=== PATIENT | female | born 1995 | race African-American/Black ===

== ENCOUNTER 2016-09-12 18:25 | Outpatient (CLI) | payer BC ==
[~2016-09-12 18:25] MED LIST: ERYTHROMYC1 APPLICAT LEFT EYE; JUNEL FE 1/21 TABLET PO; MOBIC15 MG PO; TRAMADOL HCL50 MG PO; ~No Medications
[2016-09-12 19:20] VITALS: BP 130/66
[2016-09-12 20:42] VITALS: BP 125/60
== END 2016-09-12 21:25 | disposition home or self-care (01) ==
LOC: LDRP-OP 18:25 → 2WEST 18:27 → LDRP-OP 01-13 11:24
DX: O36.8120 Decreased fetal movements, second trimester, not applicable or unspecified (principal); W19.XXXA Unspecified fall, initial encounter; Z3A.26 26 weeks gestation of pregnancy
CPT/HCPCS: 59025; 85460; G0378

== ENCOUNTER 2016-09-22 19:09 | Emergency (ER) | payer BC ==
[~2016-09-22] VITALS: Ht 157.5 cm; Wt 76.4 kg
[2016-09-22] MEDS ORDERED: VALTREX1000 MG PO (20:35)
[2016-09-22 20:54] VITALS: BP 134/75
[2016-09-25 12:05] LABS: CHLAMYDIA TRACHOMATIS NEGATIVE; NEISSERIA GONORRHOEAE NEGATIVE
== END 2016-09-22 20:56 | disposition home or self-care (01) ==
LOC: EXP 19:09 → EME 19:09 → EXP 20:56
PROVIDERS: Physician Assistant
DX: O98.313 Other infections with a predominantly sexual mode of transmission complicating pregnancy, third trimester (principal); A60.09 Herpesviral infection of other urogenital tract; Z3A.00 Weeks of gestation of pregnancy not specified; Z11.3 Encounter for screening for infections with a predominantly sexual mode of transmission
CPT/HCPCS: 87491; 87591; 99281; 99284

== ENCOUNTER 2016-11-20 15:15 | Outpatient (CLI) | payer BC ==
[~2016-11-20 15:15] MED LIST changes: +VALTREX1000 MG PO
[2016-11-20 15:32] VITALS: BP 125/69
== END 2016-11-20 17:44 | disposition home or self-care (01) ==
LOC: LDRP-OP 15:15 → 2WEST 15:16 → LDRP-OP 01-23 02:53
DX: O47.03 False labor before 37 completed weeks of gestation, third trimester (principal); Z3A.36 36 weeks gestation of pregnancy
CPT/HCPCS: 59025; G0378

== ENCOUNTER 2016-12-04 23:02 | Inpatient (IN) | payer BC, OTHER ==
[~2016-12-04] VITALS: Ht 154.9 cm; Wt 84.0 kg
[2016-12-04] MEDS ORDERED: PRENATAL TABLE1 EAC3 PO (23:39)
[2016-12-04 23:43] VITALS: BP 134/75
[2016-12-05] VITALS (24 sets, daily range): BP systolic 92–154; BP diastolic 47–95
[2016-12-05 02:51] LABS: EOSINOPHIL (%) 0.2 % (0-5); HEMATOCRIT 40.3 % (36.0-46.0); IMMATURE GRANULOCYTE (%) 0.8 % (0.0-0.7); IMMATURE GRANULOCYTE COUNT 0.1 K/uL; MCH 28.5 PG (29.0-34.0); MCV 86.5 FL (83-99); MEAN PLAT.VOLUME 12.4 uM^3 (9.5-12.4); MONOCYTE (%) 8.1 % (3-12); MONOCYTE COUNT 0.8 K/uL (0-0.8); NEUTROPHIL (%) 60.8 % (45-76); PLATELET COUNT 241 K/uL (156-360); RBC DIS.WIDTH-CV 13.3 % (11.8-14.6); RBC DIS.WIDTH-SD 41.5 % (39-53); RED BLOOD COUNT 4.66 M/uL (3.80-5.20); WHITE BLOOD COUNT 9.9 K/uL (4.1-10.2)
[2016-12-05] MEDS ORDERED: IBUPROFEN800 MG PO (15:32)
[2016-12-06 07:15] VITALS: BP 117/58
[2016-12-06 15:03] VITALS: BP 121/65
[2016-12-07 07:02] VITALS: BP 111/65
[2016-12-07 15:32] VITALS: BP 126/78
== END 2016-12-07 17:54 | disposition home or self-care (01) | DRG 774 ==
LOC: LDRP-OP 23:02 → 2WEST 23:03 → LDRP-OP 01-13 17:58
PROVIDERS: Nurse Practitioner
DX: O36.5930 Maternal care for other known or suspected poor fetal growth, third trimester, not applicable or unspecified (principal); O98.32 Other infections with a predominantly sexual mode of transmission complicating childbirth; O76 Abnormality in fetal heart rate and rhythm complicating labor and delivery; O69.81X0 Labor and delivery complicated by cord around neck, without compression, not applicable or unspecified; O99.214 Obesity complicating childbirth; E66.9 Obesity, unspecified; Z68.31 Body mass index [BMI] 31.0-31.9, adult; A60.09 Herpesviral infection of other urogenital tract; O63.9 Long labor, unspecified; O34.13 Maternal care for benign tumor of corpus uteri, third trimester; D25.9 Leiomyoma of uterus, unspecified; Z3A.38 38 weeks gestation of pregnancy; Z37.0 Single live birth
CPT/HCPCS: 85025; 88307; C1755; G0378; J2405; J3010; J7120

== ENCOUNTER 2017-05-06 15:00 | Emergency (ER) | payer BC, OTHER ==
[~2017-05-06] VITALS: Ht 154.9 cm; Wt 82.3 kg
[~2017-05-06 15:00] MED LIST changes: +IBUPROFEN800 MG PO; +PRENATAL TABLE1 EAC3 PO
[2017-05-06 15:24] VITALS: BP 148/100
[2017-05-06] MEDS ORDERED: MOTRIN800 MG PO (17:40)
[2017-05-06] MEDS ORDERED: PEN-VEE K,VEET500 MG PO (17:40)
== END 2017-05-06 17:49 | disposition home or self-care (01) ==
LOC: EME 15:00
PROC: 3E0T3BZ Introduction of Anesthetic Agent into Peripheral Nerves and Plexi, Percutaneous Approach (ICD-10-PCS; principal; 2017-05-06)
DX: K02.9 Dental caries, unspecified (principal)
CPT/HCPCS: 99281; 99284